=== PATIENT | male | born 1970 | race Caucasian/White ===

== ENCOUNTER 2021-10-02 16:24 | Emergency (ER) | payer BC, SELFPAY ==
--- NOTE | 2021-10-02 16:36 | ED.ABDPAIN ---
HPI - Abdominal Pain General Chief Complaint: Abdominal Pain Stated Complaint: abdominal pain Time Seen by Provider: 10/02/21 16:45 Source: patient and RN notes reviewed Mode of arrival: ambulatory Limitations: no limitations History of Present Illness HPI narrative: 51-year-old male presents with concern for abdominal pain, loose stools. He also reports headache, fatigue and chills. Reports the symptoms started 2 days ago. He reports left lower quadrant abdominal pain that is a 2/10 at baseline and intermittently shoots to a 9/10 he denies current constipation or history of constipation. He denies decreased appetite. He reports his last meal was lunch time. He reports he is nervous to eat because it causes the pain to worsen and causes him to have diarrhea. He denies taking anything for his stomach pain. Reports has been taking ibuprofen and Tylenol which help his headache. Patient denies dysuria, hematuria, urine frequency, testicular redness, swelling, pain MD elicited complaint: abdominal pain Related Data Home Medications Medication Instructions Recorded Confirmed atorvastatin 20 mg PO DAILY 10/02/21 10/02/21 metoprolol succinate 100 mg PO DAILY 10/02/21 10/02/21 Allergies Allergy/AdvReac Type Severity Reaction Status Date / Time NKDA Allergy Unknown Uncoded 10/02/21 16:47 Review of Systems Review of Systems: CONSTITUTIONAL: Denies malaise, sweats, or fever. Reports fatigue and chills ENT: Denies rhinorrhea, congestion, sinus pain, otalgia or sore throat. CARDIOVASCULAR: Denies chest pain, palpitations, or edema. RESPIRATORY: Denies cough or dyspnea. GASTROINTESTINAL: Reports left lower quadrant abdominal pain, loose stools. Denies nausea, vomiting, diarrhea, or mucous stools. GENITOURINARY: Denies dysuria or hematuria. MUSCULOSKELETAL: Denies myalgia. NEUROLOGIC: Reports headache. All systems reviewed & are unremarkable except as noted in HPI and below PMFSH Comments At time of signature, agree with nursing past medical, surgical, social and family history. There is no relevant family history pertinent to the presenting complaint Exam Narrative: GENERAL: Well-appearing, well-nourished, and in no acute distress. HEAD: Normocephalic, atraumatic. EYES: PERRLA, conjunctivae clear, and EOMI. ENT: Nares clear, turbinates pink, no rhinorrhea or epistaxis. Mucous membranes moist. Oropharynx without edema, erythema, or lesions. Tonsils not enlarged and without exudate. NECK: Supple. No lymphadenopathy CHEST: Speaks in full sentences. No respiratory distress. HEART: Regular rate and rhythm. ABDOMEN: Soft, flat, nondistended. No guarding, rebound tenderness, or rigid. Left lower quadrant tenderness. No pulsatile masses. Bowel sounds present in all four quadrants. No organomegaly. Negative Hill?s sign. No periumbilical tenderness. No Supra public tenderness or distension. Good femoral pulses bilaterally. No hernia noted. No scars or surface trauma. SKIN: Warm, dry, no rash. NEURO: Alert and oriented x3. PSYCH: Normal mood and affect Course Course Emergency Course: Discussed limited diagnostic capability [facility] for abdominal pain. Discussed transfer to emergency department for further evaluation versus follow-up with patient's gastroenterology or primary care provider for further evaluation. 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 Patient is aware of, understands and agrees to treatment plan. Anticipatory guidance given. Patient agrees to follow-up as directed and is aware of reasons to seek care at the emergency department. Portions of this record may have been created with voice recognition software Level of Care: [facility] Visit Vital Signs Vital signs: Reviewed. MDM - Abdominal Pain MDM Narrative Medical decision making narrative: Ex
[2021-10-02 16:37] VITALS: BP 152/88; PULSE 85; RESP 18; TEMP 36.9; O2SAT 98
== END 2021-10-02 17:19 | disposition home or self-care (01) ==
PROVIDERS: Emergency Provider Nurse Practitioner
DX: R10.32 Left lower quadrant pain (principal); Z20.822 Contact with and (suspected) exposure to COVID-19; E78.00 Pure hypercholesterolemia, unspecified
CPT/HCPCS: 87426; 87804; 99213; C9803; G0463